=== PATIENT | male | born 1980 | race Two or more races ===

== ENCOUNTER 2019-07-06 19:53 | Emergency (ER) | payer BC ==
[2019-07-06] MEDS ORDERED: Ondansetron 4 MG Tab.DIS PO ONE (20:41)
--- NOTE | 2019-07-06 20:43 | EDM.PDOC ---
ED HPI GENERAL MEDICAL PROBLEM - General Chief Complaint: Respiratory Problem Stated Complaint: VOMITTING, COUGHING Time Seen by Provider: 07/06/19 20:12 Source of Information: Reports: Patient History Limitations: Reports: No Limitations - History of Present Illness INITIAL COMMENTS - FREE TEXT/NARRATIVE: HISTORY AND PHYSICAL: History of present illness: Patient is a 39-year-old male who presents to the emergency room today with complaints of cough, fever, body aches. He reports that a coworker was here just an hour ago and had been diagnosed with influenza. He is concerned he may also have influenza. He has had 2 episodes of vomiting since this morning. Otherwise he has been able to keep food and fluids down although has a decreased appetite. Denies any recent travel. Patient denies any change in vision, syncope or near syncope. Denies any chest pain, back pain, shortness of breath or cough. Denies any abdominal pain, diarrhea, constipation or dysuria. Review of systems: As per history of present illness and below otherwise all systems reviewed and negative. Past medical history: As per history of present illness and as reviewed below otherwise noncontributory. Surgical history: As per history of present illness and as reviewed below otherwise noncontributory. Social history: See social history for further information Family history: As per history of present illness and as reviewed below otherwise noncontributory. Physical exam: General: Well-developed and well-nourished 39-year-old male. Alert and oriented. Nontoxic-appearing and in no acute distress. HEENT: Atraumatic, normocephalic, pupils equal and reactive bilaterally, negative for conjunctival pallor or scleral icterus, mucous membranes moist, TMs normal bilaterally, throat clear, neck supple, nontender, trachea midline. No drooling or trismus noted. No meningeal signs. No hot potato voice noted. Lungs: Clear to auscultation, breath sounds equal bilaterally, chest nontender. Heart: S1S2, regular rate and rhythm without overt murmur Abdomen: Soft, nondistended, nontender. Negative for masses or hepatosplenomegaly. Negative for costovertebral tenderness. Pelvis: Stable nontender. Skin: Intact, warm, dry. No lesions or rashes noted. Extremities: Atraumatic, moves all extremities per self without difficulty or deficits, negative for cords or calf pain. Neurovascular unremarkable. Neuro: Awake, alert, oriented. Cranial nerves II through XII unremarkable. Cerebellum unremarkable. Motor and sensory unremarkable throughout. Exam nonfocal. Notes: CXR and influenza swab are unremarkable. Patient states he now has some right- sided flank pain and some generalized abdominal pain. Abdomen continues to be soft and nontender, no flank tenderness. We will do some basic lab work and IV fluids. Lab work is unremarkable. VSS. Medication and supportive care measures were reviewed and discussed. Voices understanding and is agreeable to plan of care. Denies any further questions or concerns at this time. Diagnostics: CXR, Influenza, CBC, CMP Therapeutics: Zofran, IV fluids, Toradol Prescription: Zofran Impression: Viral URI Nonspecific abdominal pain Plan: 1. [place] diet, advance as tolerated. Increase your oral fluids to prevent dehydration. May use the Zofran as directed. 2. Tylenol and/or Ibuprofen as needed for pain management. 3. Follow up with your primary care provider as we discussed. Return to the ED as needed and as discussed. Definitive disposition and diagnosis as appropriate pending reevaluation and review of above. Body Pain Score (Numeric/FACES): 7 - Related Data Allergies Allergy/AdvReac Type Severity Reaction Status Date / Time No Known Allergies Allergy Verified 07/06/19 20:20 Home Meds: Home Meds . [No Known Home Meds] 07/06/19 [History] Past Medical History Musculoskeletal History: Reports: Fracture - Infectious Disease History Infectious Disease History: Reports: Chicken Pox - Past Surgical History Musculoskeletal Surgical History: Reports: Arthroscopic Procedure, Shoulder Surgery Social & Family History - Family History Family Medical History: Noncontributory - Tobacco Use Smoking Status *Q: Current Every Day Smoker Years of Tobacco use: 1 Packs/Tins Daily: 0.2 - Caffeine Use Caffeine Use: Reports: None - Recreational Drug Use Recreational Drug Use: No ED ROS GENERAL - Review of Systems Review Of Systems: Comprehensive ROS is negative, except as noted in HPI. ED EXAM, GENERAL - Physical Exam Exam: See Below (See dictation) Course - Vital Signs Last Recorded V/S: Last Vital Signs Temp 98.7 F 07/06/19 21:17 Pulse 87 07/06/19 21:17 Resp 18 07/06/19 21:17 BP 122/75 07/06/19 21:17 Pulse Ox 100 07/06/19 21:17 - Orders/Labs/Meds Labs: Laboratory Tests 07/06/19 07/06/19 07/06/19 Range/Units 21:05 21:05 21:10 WBC 8.35 (4.0-11.0) K/uL RBC 4.78 (4.50-5.90) M/uL Hgb 14.8 (13.0-17.0) g/dL Hct 42.8 (38.0-50.0) % MCV 89.5 (80.0-98.0) fL MCH 31.0 (27.0-32.0) pg MCHC 34.6 (31.0-37.0) g/dL RDW Std Deviation 41.9 (28.0-62.0) fl RDW Coeff of Selvin 13 (11.0-15.0) % Plt Count 254 (150-400) K/uL MPV 10.20 (7.40-12.00) fL Neut % (Auto) 76.6 (48.0-80.0) % Lymph % (Auto) 13.2 L (16.0-40.0) % [place] % (Auto) 9.0 (0.0-15.0) % Eos % (Auto) 0.7 (0.0-7.0) % Baso % (Auto) 0.5 (0.0-1.5) % Neut # (Auto) 6.4 H (1.4-5.7) K/uL Lymph # (Auto) 1.1 (0.6-2.4) K/uL [place] # (Auto) 0.8 (0.0-0.8) K/uL Eos # (Auto) 0.1 (0.0-0.7) K/uL Baso # (Auto) 0.0 (0.0-0.1) K/uL Nucleated RBC % 0.0 /100WBC Nucleated RBCs # 0 K/uL Sodium (136-148) mmol/L Potassium (3.5-5.1) mmol/L Chloride (98-107) mmol/L Carbon Dioxide (21.0-32.0) mmol/L BUN (7.0-18.0) mg/dL Creatinine (0.8-1.3) mg/dL Est Cr Clr Drug Dosing mL/min Estimated GFR (MDRD) ml/min Glucose (74-106) mg/dL Calcium (8.5-10.1) mg/dL Total Bilirubin (0.2-1.0) mg/dL AST (15-37) IU/L ALT (14-63) IU/L Alkaline Phosphatase (46-116) U/L Total Protein (6.4-8.2) g/dL Albumin (3.4-5.0) g/dL Globulin (2.6-4.0) g/dL Albumin/Globulin Ratio (0.9-1.6) Urine Color YELLOW Urine Appearance CLEAR Urine pH 7.0 (5.0-8.0) Ur Specific [place] 1.020 (1.001-1.035) Urine Protein NEGATIVE (NEGATIVE) mg/dL Urine Glucose (UA) NEGATIVE (NEGATIVE) mg/dL Urine Ketones NEGATIVE (NEGATIVE) mg/dL Urine Occult Blood NEGATIVE (NEGATIVE) Urine Nitrite NEGATIVE (NEGATIVE) Urine Bilirubin NEGATIVE (NEGATIVE) Urine Urobilinogen 0.2 (<2.0) EU/dL Ur Leukocyte Esterase NEGATIVE (NEGATIVE) Urine Opiates Screen NEGATIVE (NEGATIVE) Ur Oxycodone Screen NEGATIVE (NEGATIVE) Urine Methadone Screen NEGATIVE (NEGATIVE) Ur Barbiturates Screen NEGATIVE (NEGATIVE) Ur Phencyclidine Scrn NEGATIVE (NEGATIVE) Ur Amphetamine Screen NEGATIVE (NEGATIVE) U Methamphetamines Scrn NEGATIVE (NEGATIVE) U Benzodiazepines Scrn NEGATIVE (NEGATIVE) U Cocaine Metab Screen NEGATIVE (NEGATIVE) U Marijuana (THC) Screen NEGATIVE (NEGATIVE) 07/06/19 Range/Units 21:10 WBC (4.0-11.0) K/uL RBC (4.50-5.90) M/uL Hgb (13.0-17.0) g/dL Hct (38.0-50.0) % MCV (80.0-98.0) fL MCH (27.0-32.0) pg MCHC (31.0-37.0) g/dL RDW Std Deviation (28.0-62.0) fl RDW Coeff of Selvin (11.0-15.0) % Plt Count (150-400) K/uL MPV (7.40-12.00) fL Neut % (Auto) (48.0-80.0) % Lymph % (Auto) (16.0-40.0) % [place] % (Auto) (0.0-15.0) % Eos % (Auto) (0.0-7.0) % Baso % (Auto) (0.0-1.5) % Neut # (Auto) (1.4-5.7) K/uL Lymph # (Auto) (0.6-2.4) K/uL [place] # (Auto) (0.0-0.8) K/uL Eos # (Auto) (0.0-0.7) K/uL Baso # (Auto) (0.0-0.1) K/uL Nucleated RBC % /100WBC Nucleated RBCs # K/uL Sodium 138 (136-148) mmol/L Potassium 3.9 (3.5-5.1) mmol/L Chloride 104 (98-107) mmol/L Carbon Dioxide 26.9 (21.0-32.0) mmol/L BUN 16 (7.0-18.0) mg/dL Creatinine 0.9 (0.8-1.3) mg/dL Est Cr Clr Drug Dosing 93.96 mL/min Estimated GFR (MDRD) > 60.0 ml/min Glucose 91 (74-106) mg/dL Calcium 8.3 L (8.5-10.1) mg/dL Total Bilirubin 0.4 (0.2-1.0) mg/dL AST 18 (15-37) IU/L ALT 26 (14-63) IU/L Alkaline Phosphatase 68 (46-116) U/L Total Protein 7.1 (6.4-8.2) g/dL Albumin 3.7 (3.4-5.0) g/dL Globulin 3.4 (2.6-4.0) g/dL Albumin/Globulin Ratio 1.1 (0.9-1.6) Urine Color Urine Appearance Urine pH (5.0-8.0) Ur Specific [place] (1.001-1.035) Urine Protein (NEGATIVE) mg/dL Urine Glucose (UA) (NEGATIVE) mg/dL Urine Ketones (NEGATIVE) mg/dL Urine Occult Blood (NEGATIVE) Urine Nitrite (NEGATIVE) Urine Bilirubin (NEGATIVE) Urine Urobilinogen (<2.0) EU/dL Ur Leukocyte Esterase (NEGATIVE) Urine Opiates Screen (NEGATIVE) Ur Oxycodone Screen (NEGATIVE) Urine Methadone Screen (NEGATIVE) Ur Barbiturates Screen (NEGATIVE) Ur Phencyclidine Scrn (NEGATIVE) Ur Amphetamine Screen (NEGATIVE) U Methamphetamines Scrn (NEGATIVE) U Benzodiazepines Scrn (NEGATIVE) U Cocaine Metab Screen (NEGATIVE) U Marijuana (THC) Screen (NEGATIVE) Meds: Medications Discontinued Medications Generic Name Dose Route Start Last Admin Trade Name Robbieq PRN Reason Stop Dose Admin Sodium Chloride 1,000 mls @ 999 mls/hr 07/06/19 20:56 07/06/19 21:13 Normal Saline IV 07/06/19 21:56 999 mls/hr STAT ONE Administration Ketorolac Tromethamine 30 mg 07/06/19 20:56 07/06/19 21:13 Toradol IVPUSH 07/06/19 20:57 30 mg ONETIME ONE Administration Ondansetron HCl 4 mg 07/06/19 20:41 07/06/19 20:47 Zofran Odt PO 07/06/19 20:42 4 mg ONETIME ONE Administration Departure - Departure Time of Disposition: 22:02 Disposition: Home, Self-Care 01 Clinical Impression: Viral URI, Pain, abdominal, nonspecific - Discharge Information Instructions: Viral Respiratory Infection, [id number] Referrals: PCP,None [Primary Care Provider] - Forms: ED Department Discharge Additional Instructions: The following information is given to patients seen in the emergency department who are being discharged to home. This information is to outline your options for follow-up care. We provide all patients seen in our emergency department with a follow-up referral. The need for follow-up, as well as the timing and circumstances, are variable depending upon the specifics of your emergency department visit. If you don't have a primary care physician on staff, we will provide you with a referral. We always advise you to contact your personal physician following an emergency department visit to inform them of the circumstance of the visit and for follow-up with them and/or the need for any referrals to a consulting specialist. The emergency department will also refer you to a specialist when appropriate. This referral assures that you have the opportunity for follow-up care with a specialist. All of these measure are taken in an effort to provide you with optimal care, which includes your follow-up. Under all circumstances we always encourage you to contact your private physician who remains a resource for coordinating your care. When calling for follow-up care, please make the office aware that this follow-up is from your recent emergency room visit. If for any reason you are refused follow-up, please contact the [facility] Emergency Department at and asked to speak to the emergency department charge nurse. [facility] [address] [place] [address] [facility] [address] [place] [id number] 1. [place] diet, advance as tolerated. Increase your oral fluids to prevent dehydration. May use the Zofran as directed. 2. Tylenol and/or Ibuprofen as needed for pain management. 3. Follow up with your primary care provider as we discussed. Return to the ED as needed and as discussed. Sepsis Event Note - Evaluation Sepsis Screening Result: No Definite Risk - Focused Exam Vital Signs: Vital Signs Temp Temp Pulse Resp BP Pulse Ox 07/06/19 21:17 98.7 F 87 18 122/75 100 07/06/19 20:20 99.4 F 86 16 116/70 98 Date Exam was Performed: 07/06/19 Time Exam was Performed: 22:02
--- NOTE | 2019-07-06 20:48 | CR ---
Chest: 2 views of the chest were obtained. Comparison: No previous chest x-ray is available. Heart size and mediastinum are within normal limits. Lungs are clear with no acute parenchymal change. Scattered disc space narrowing within the spine is seen with mild endplate spurring. Impression: 1. Slight degenerative change within the spine. 2. Nothing acute is appreciated on 2 view chest x-ray. Diagnostic code #2 Study was dictated in [place] Standard Time
[2019-07-06] MEDS ORDERED: Sodium Chloride 0.9% 1,000 ML IV ONE (20:56)
[2019-07-06] MEDS ORDERED: Ketorolac 30 MG/ML SDV IVPUSH ONE (20:56)
[2019-07-06 22:01] LABS: BLOOD UREA NITROGEN,BUN 16 mg/dL (7.0-18.0); CARBON DIOXIDE,CO2 26.9 mmol/L (21.0-32.0); CHLORIDE,CL 104 mmol/L (98-107); GLUCOSE RANDOM 91 mg/dL (74-106); POTASSIUM,K 3.9 mmol/L (3.5-5.1); SODIUM,NA 138 mmol/L (136-148)
== END 2019-07-06 22:20 | disposition home or self-care (01) ==
LOC: MW.ED 19:53
DX: J06.9 Acute upper respiratory infection, unspecified (principal); R10.9 Unspecified abdominal pain; F17.210 Nicotine dependence, cigarettes, uncomplicated
CPT/HCPCS: 36415; 71046; 80053; 80305; 81003; 85025; 87804; 96361; 96374; 99284; A9270; J1885; J7030; 99283

== ENCOUNTER 2019-07-09 18:21 | Emergency (ER) | payer BC ==
--- NOTE | 2019-07-09 19:35 | EDM.PDOC ---
ED HPI GENERAL MEDICAL PROBLEM - General Chief Complaint: General Stated Complaint: COUGHING, CHEST PAIN Time Seen by Provider: 07/09/19 18:32 Source of Information: Reports: Patient - History of Present Illness INITIAL COMMENTS - FREE TEXT/NARRATIVE: CC cough HPI: This is a 39-year-old male who presents with cough and respirophasic chest pain. Patient was recently evaluated here and had a negative flu chest x- ray CBC and comprehensive metabolic profile at that time. He has ongoing symptoms to include a productive cough without hemoptysis. He has 102 fever. He is having body aches, sore throat and headache. No vomiting or diarrhea no other complaints PMHX/PSHX: Negative Social History: Negative for tobacco, positive for alcohol, negative for street drugs or marijuana Family history: Hypertension ROS: see chart PE: VS afebrile vital signs stable General: No apparent distress Head: Atraumatic normocephalic no lumps bumps or bruises Eyes: EOMI PERRLA Ears: TMs intact no hemotympanum no signs of infection no mastoid tenderness Nose: No epistaxis nares patent no septal wall hematoma Throat: No pharyngeal erythema or exudate no tonsillar enlargement Neck: Supple, no cervical lymphadenopathy Chest wall: No point tenderness Heart: Regular rate and rhythm without murmur gallop or rub Lungs: Clear to auscultation and percussion without rales rhonchi or wheeze Abdomen: Soft nontender nondistended without guarding rigidity or rebound Neck: No spinal point tenderness full range of motion in all 6 directions Back: No spinal paraspinal or CVA tenderness Extremities: full rom through out. no effusions skin: Warm dry intact no rashes neurologic: cranial nerves II through XII intact. No focal motor or sensory deficits noted MDM: Differential diagnosis: Viral upper respiratory illness pharyngitis pneumonia ED course: Lungs are clear to auscultation and percussion patient's not hypoxic or tachypneic. He has reproducible chest wall pain. ENT exam is unremarkable. He has classic symptoms of a viral upper respiratory illness. Family members have similar symptoms. No indication for further testing here. Stable for discharge Diagnosis: Upper respiratory illness Disposition: Home Chest Wall Pain Pain Score (Numeric/FACES): 8 - Related Data Allergies Allergy/AdvReac Type Severity Reaction Status Date / Time No Known Allergies Allergy Verified 07/09/19 18:51 Home Meds: Home Meds Ondansetron [Zofran ODT] 4 mg SL QID PRN 07/09/19 [History] Past Medical History Musculoskeletal History: Reports: Fracture - Infectious Disease History Infectious Disease History: Reports: Chicken Pox - Past Surgical History Musculoskeletal Surgical History: Reports: Arthroscopic Procedure, Shoulder Surgery Social & Family History - Family History Family Medical History: Noncontributory - Tobacco Use Smoking Status *Q: Current Every Day Smoker Years of Tobacco use: 6 Packs/Tins Daily: 1 - Caffeine Use Caffeine Use: Reports: Coffee - Recreational Drug Use Recreational Drug Use: No ED ROS GENERAL - Review of Systems Review Of Systems: Comprehensive ROS is negative, except as noted in HPI. ED EXAM, GENERAL - Physical Exam Exam: See Below Free Text/Narrative:: See my dictation Course - Vital Signs Last Recorded V/S: Last Vital Signs Temp 36.2 C 07/09/19 18:35 Pulse 74 07/09/19 18:35 Resp 18 07/09/19 18:35 BP 121/73 07/09/19 18:35 Pulse Ox 98 07/09/19 18:35 Departure - Departure Time of Disposition: 19:33 Disposition: Home, Self-Care 01 Clinical Impression: Viral URI - Discharge Information Referrals: Constantino Jmiénez MD [Primary Care Provider] - Additional Instructions: URI You were evaluated and treated in the emergency department for an upper respiratory infection (URI). URIs may include nasal congestion, sore throat, sinus pressure, headaches, earaches, eye irritation, cough and fevers. Nearly all URIs are caused by viruses and antibiotics will not help and are not recommended. Viral infections like this are self-limited. The goal of treatment is symptom relief. Take TheraFlu or Tylenol and ibuprofen as needed for body aches. Push fluids. Place a humidifier in the bedroom. You should return immediately if: -symptoms are worsening -you develop shortness of breath -you develop severe headache or neck stiffness -you develop any other severe pain Sepsis Event Note - Evaluation Sepsis Screening Result: No Definite Risk - Focused Exam Vital Signs: Vital Signs Temp Pulse Resp BP Pulse Ox 07/09/19 18:35 36.2 C 74 18 121/73 98 Date Exam was Performed: 07/09/19 Time Exam was Performed: 19:30
== END 2019-07-09 19:48 | disposition home or self-care (01) ==
LOC: MW.ED 18:21
DX: J06.9 Acute upper respiratory infection, unspecified (principal); B97.89 Other viral agents as the cause of diseases classified elsewhere; F17.210 Nicotine dependence, cigarettes, uncomplicated
CPT/HCPCS: 99284

== ENCOUNTER 2020-02-01 15:37 | Emergency (ER) | payer BC ==
[2020-02-01] MEDS ORDERED: Ketorolac 60 MG/2 ML SDV IM ONE (16:18)
--- NOTE | 2020-02-01 16:20 | EDM.PDOC ---
ED HPI GENERAL MEDICAL PROBLEM - General Chief Complaint: General Stated Complaint: PAIN ON LT SIDE OF BODY DUE TO FALL Time Seen by Provider: 02/01/20 15:59 Source of Information: Reports: Patient History Limitations: Reports: No Limitations - History of Present Illness INITIAL COMMENTS - FREE TEXT/NARRATIVE: HISTORY AND PHYSICAL: History of present illness: Patient is a 39-year-old male who presents to the emergency room with complaints of left anterior and lateral chest pain. He states 3 or 4 days ago he had fallen off the bed of his truck and hit his left anterior chest on the bumper. He did not hit his head or have any loss of consciousness. He states the pain has improved although it still noticeable and wanted to be evaluated to see if he has any rib fractures. Pain is aggravated with deep breathing, coughing or movement of the torso. At rest he does not have any pain. Patient denies any fever, chills, headache, change in vision, syncope or near syncope. Denies any chest pain, back pain, shortness of breath or cough. Denies any abdominal pain, nausea, vomiting, diarrhea, constipation or dysuria. Has not noted any blood in urine or stool. Patient has been eating and drinking appropriately. Review of systems: As per history of present illness and below otherwise all systems reviewed and negative. Past medical history: As per history of present illness and as reviewed below otherwise noncontributory. Surgical history: As per history of present illness and as reviewed below otherwise noncontributory. Social history: See social history for further information Family history: As per history of present illness and as reviewed below otherwise noncontributory. Physical exam: General: Well developed and well nourished 39-year-old male. Alert and orientated x 3. Nontoxic in appearance and in no acute distress. Vital signs are stable and have been reviewed by me. Nursing notes were reviewed. HEENT: Atraumatic, normocephalic, pupils equal and reactive bilaterally, negative for conjunctival pallor or scleral icterus, mucous membranes moist, nontender, trachea midline. No drooling or trismus noted. No meningeal signs. No hot potato voice noted. Lungs: Clear to auscultation, breath sounds equal bilaterally, chest tender to low left anterior and lateral chest wall. Normal work of breathing, no accessory muscles used. Heart: S1S2, regular rate and rhythm without overt murmur Abdomen: Soft, nondistended, nontender. Negative for masses or costovertebral tenderness. Pelvis: Stable nontender. Skin: Intact, warm, dry. No lesions or rashes noted. Hematologic: No petechiae or purpra. Mucosa appropriate color and normal nail bed color and refill. Extremities: Atraumatic, moves all extremities per self without difficulty or deficits. Neurovascular unremarkable. Neuro: Awake, alert, oriented. Cranial nerves II through XII unremarkable. Cerebellum unremarkable. Motor and sensory unremarkable throughout. Exam nonfocal. Notes: Patient's pain is only with movement or palpation of the chest wall. I have no concerning findings for systemic related causes. X-ray shows no acute findings. Upon re-evaluation, patient is appropriate for discharge. Vital signs are stable. We discussed signs and symptoms that would prompt them to return to the Emergency Department. Medication, follow up and supportive care measures were reviewed and discussed. Voices understanding and is agreeable to plan of care. Denies any further questions or concerns at this time. Diagnostics: CXR w/ rib detail Therapeutics: Norflex and Toradol Prescription: Tramadol (#10) Impression: Rib contusion Plan: 1. Today your x-ray shows no acute fractures. 2. Gentle heat to the areas. Alternate Tylenol and or ibuprofen as needed for pain management. Tramadol as needed for moderate pain. This medication may cause drowsiness, so do not take while driving or needing to be functioning outside the house. 3. We always encourage you to follow up with your primary care provider or recommended specialist in the next few days for re-evaluation and further care/management. If your symptoms should worsen, new symptoms develop or any of the signs and symptoms we discussed should arise please return to the emergency room or call 911 (if needed). Definitive disposition and diagnosis as appropriate pending reevaluation and review of above. rib pain Pain Score (Numeric/FACES): 9 - Related Data Allergies Allergy/AdvReac Type Severity Reaction Status Date / Time No Known Allergies Allergy Verified 02/01/20 15:53 Home Meds: Home Meds . [No Known Home Meds] 02/01/20 [History] Past Medical History Respiratory History: Reports: Asthma Musculoskeletal History: Reports: Fracture Other Musculoskeletal History: R pinky sx - Infectious Disease History Infectious Disease History: Reports: Chicken Pox - Past Surgical History Musculoskeletal Surgical History: Reports: Arthroscopic Procedure, Shoulder Surgery Social & Family History - Family History Family Medical History: Noncontributory - Caffeine Use Caffeine Use: Reports: None - Recreational Drug Use Recreational Drug Use: No ED ROS GENERAL - Review of Systems Review Of Systems: Comprehensive ROS is negative, except as noted in HPI. ED EXAM, GENERAL - Physical Exam Exam: See Below (See dictation) Course - Vital Signs Last Recorded V/S: Last Vital Signs Temp 97.5 F 02/01/20 17:20 Pulse 75 02/01/20 17:20 Resp 18 02/01/20 17:20 BP 132/77 02/01/20 17:20 Pulse Ox 98 02/01/20 17:20 - Orders/Labs/Meds Meds: Medications Discontinued Medications Generic Name Dose Route Start Last Admin Trade Name Keren PRN Reason Stop Dose Admin Ketorolac Tromethamine 60 mg 02/01/20 16:18 02/01/20 16:41 Toradol IM 02/01/20 16:19 60 mg ONETIME ONE Administration Orphenadrine Citrate 60 mg 02/01/20 16:18 02/01/20 16:40 Norflex IM 02/01/20 16:19 60 mg ONETIME ONE Administration Departure - Departure Time of Disposition: 18:25 Disposition: Home, Self-Care 01 Clinical Impression: Contusion of rib on left side Qualifiers: Encounter type: initial encounter Qualified Code(s): S20.212A - Contusion of left front wall of thorax, initial encounter - Discharge Information Instructions: Contusion, [id number] Referrals: Constantino Jiménez MD [Primary Care Provider] - Forms: ED Department Discharge Additional Instructions: The following information is given to patients seen in the emergency department who are being discharged to home. This information is to outline your options for follow-up care. We provide all patients seen in our emergency department with a follow-up referral. The need for follow-up, as well as the timing and circumstances, are variable depending upon the specifics of your emergency department visit. If you don't have a primary care physician on staff, we will provide you with a referral. We always advise you to contact your personal physician following an emergency department visit to inform them of the circumstance of the visit and for follow-up with them and/or the need for any referrals to a consulting specialist. The emergency department will also refer you to a specialist when appropriate. This referral assures that you have the opportunity for follow-up care with a specialist. All of these measure are taken in an effort to provide you with optimal care, which includes your follow-up. Under all circumstances we always encourage you to contact your private physician who remains a resource for coordinating your care. When calling for follow-up care, please make the office aware that this follow-up is from your recent emergency room visit. If for any reason you are refused follow-up, please contact the [facility] Emergency Department at and asked to speak to the emergency department charge nurse. [facility] [address] [place] [id number] [facility] [address] [place] [id number] Thank you for choosing the [facility] emergency department in [place] for your medical needs today. It was a pleasure caring for you. Today you were seen in the emergency department for rib injury/pain. 1. Today your x-ray shows no acute fractures. 2. Gentle heat to the areas. Alternate Tylenol and or ibuprofen as needed for pain management. Tramadol as needed for moderate pain. This medication may cause drowsiness, so do not take while driving or needing to be functioning outside the house. 3. We always encourage you to follow up with your primary care provider or recommended specialist in the next few days for re-evaluation and further care/management. If your symptoms should worsen, new symptoms develop or any of the signs and symptoms we discussed should arise please return to the emergency room or call 911 (if needed). Sepsis Event Note (ED) - Evaluation Sepsis Screening Result: No Definite Risk - Focused Exam Vital Signs: Vital Signs Temp Pulse Resp BP Pulse Ox 02/01/20 17:20 97.5 F 75 18 132/77 98 02/01/20 15:53 97.4 F 64 18 110/64 97
--- NOTE | 2020-02-01 17:40 | CR ---
INDICATION: Left anterior chest pain after fall 2 days ago. TECHNIQUE: Single frontal view chest and 2 views left ribs. COMPARISON: Chest x-ray 07/06/2019. FINDINGS: No acute left-sided rib fractures. Moderate degenerate hypertrophic changes in the spine. Heart size normal. Lungs clear. Chest otherwise unremarkable. Dictated by Neto De Souza MD @ Feb 01 2020 5:37PM Signed by Dr. Neto De Souza @ Feb 01 2020 5:39PM
== END 2020-02-01 17:20 | disposition home or self-care (01) ==
LOC: MW.ED 15:37
DX: S20.212A Contusion of left front wall of thorax, initial encounter (principal); W06.XXXA Fall from bed, initial encounter
CPT/HCPCS: 71101; 96372; 99283; J1885; J2360

== ENCOUNTER 2021-10-04 21:29 | Emergency (ER) | payer BC ==
[2021-10-04] MEDS ORDERED: Ketorolac 30 MG/ML SDV IM ONE (23:04)
[2021-10-04 23:38] LABS: CORONAVIRUS COVID-19 NAA POSITIVE (NEGATIVE); INFLUENZA A NAA NEGATIVE (NEGATIVE); INFLUENZA B NAA NEGATIVE (NEGATIVE)
== END 2021-10-05 00:54 | disposition home or self-care (01) ==
LOC: MW.ED 21:29
DX: U07.1 COVID-19 (principal)
CPT/HCPCS: 0240U; 71045; 71045-26; 96372; 99283-25; J1885

== ENCOUNTER 2021-12-08 18:35 | Emergency (ER) | payer OTHER, BC | END 2021-12-08 20:49 | disposition home or self-care (01) | LOC: MW.ED 18:35 | DX: S83.411A Sprain of medial collateral ligament of right knee, initial encounter (principal); X50.1XXA Overexertion from prolonged static or awkward postures, initial encounter; Y99.0 Civilian activity done for income or pay | CPT/HCPCS: 73562-26-RT; 73562-RT; 99283 ==

== ENCOUNTER 2022-01-09 20:51 | Emergency (ER) | payer BC ==
[2022-01-09] MEDS ORDERED: Tetracaine HCl/PF 0.5% 4 ML Bottle EYEBOTH STA (22:28)
[2022-01-09] MEDS ORDERED: Erythromycin Base 0.5% Ophth Oint 1 GM Tube EYELF STA (23:19)
[2022-01-09] MEDS ORDERED: Sulfamethoxazole/Trimethoprim 800-160 MG Tab PO STA (23:19)
[2022-01-09] MEDS ORDERED: Amoxicillin/Clavulanate K 875-125 MG Tab PO STA (23:20)
[2022-01-09] MEDS ORDERED: Ketorolac 30 MG/ML SDV IM STA (23:22)
== END 2022-01-09 23:44 | disposition home or self-care (01) ==
LOC: MW.ED 20:51
DX: S05.02XA Injury of conjunctiva and corneal abrasion without foreign body, left eye, initial encounter (principal); L03.213 Periorbital cellulitis; H10.022 Other mucopurulent conjunctivitis, left eye
CPT/HCPCS: 96372; 99283; A9270; J1885

== ENCOUNTER 2023-07-03 03:12 | Emergency (ER) | payer SELFPAY ==
[2023-07-03] MEDS ORDERED: traMADol 50 MG Tab PO ONE (03:13)
== END 2023-07-03 04:10 | disposition home or self-care (01) ==
LOC: MW.ED 03:12
DX: S46.911A Strain of unspecified muscle, fascia and tendon at shoulder and upper arm level, right arm, initial encounter (principal); W22.8XXA Striking against or struck by other objects, initial encounter; Y99.0 Civilian activity done for income or pay
CPT/HCPCS: 73030; 99283; A9270

== ENCOUNTER 2025-02-25 06:53 | Day surgery (SDC) | payer BC ==
[2025-02-25] MEDS: Lactated Ringers 1,000 ML IV SCH (07:12)
[2025-02-25] MEDS ORDERED: fentaNYL 100 MCG/2 ML SDV ONE (07:22)
[2025-02-25] MEDS ORDERED: Propofol 200 MG/20 ML SDV ONE (07:22)
[2025-02-25] MEDS ORDERED: dexmedeTOMIDine HCl 200 MCG/2 ML SDV ONE (07:23)
[2025-02-25] MEDS ORDERED: Ondansetron 4 MG/2 ML SDV IVPUSH PRN (07:56)
[2025-02-25] MEDS ORDERED: fentaNYL 50 MCG/ML SDV IVPUSH PRN (07:56)
[2025-02-25] MEDS ORDERED: Naloxone 0.4 MG/ML SDV IVPUSH PRN (07:56)
[2025-02-25] MEDS ORDERED: Albuterol 0.083% 2.5 MG/3 ML Neb Soln NEB PRN (07:56)
[2025-02-25] MEDS ORDERED: Ondansetron 4 MG/2 ML SDV ONE (08:03)
[2025-02-25] MEDS ORDERED: Dexamethasone 4 MG/ML 5 ML MDV ONE (08:03)
[2025-02-25] MEDS ORDERED: Ketorolac 30 MG/ML SDV ONE (08:24)
[2025-02-25] MEDS ORDERED: ceFAZolin 2 GM in Water For Injection, Sterile 20 ML IVPUSH ONE (14:33)
== END 2025-02-25 10:17 | disposition home or self-care (01) ==
LOC: MW.SDS 06:53
PROVIDERS: ATTEND Surgery
DX: D17.23 Benign lipomatous neoplasm of skin and subcutaneous tissue of right leg (principal); J45.909 Unspecified asthma, uncomplicated; F17.210 Nicotine dependence, cigarettes, uncomplicated; Z79.899 Other long term (current) drug therapy
CPT/HCPCS: 27632; J0665; J0690; J1100; J1885; J2003; J2405; J2704; J3010; J7120; 01470